=== PATIENT | female | born 1950 | race Caucasian/White ===

== ENCOUNTER 2020-05-02 02:52 | Outpatient (CLI) | payer SELFPAY ==
[2020-05-02 08:57] LABS: CHOL/HDL RATIO 2.57 (0.00-4.99)
== END 2020-05-02 23:59 | disposition home or self-care (01) ==
LOC: HW HEART 02:52
DX: Z13.6 Encounter for screening for cardiovascular disorders (principal)
CPT/HCPCS: 36415; G0438

== ENCOUNTER 2023-05-24 09:03 | Outpatient (CLI) | payer SELFPAY | END 2023-05-24 23:59 | disposition home or self-care (01) | LOC: VAS 09:03 | DX: Z13.6 Encounter for screening for cardiovascular disorders (principal) ==